=== PATIENT | male | born 1950 | race Caucasian/White ===

== ENCOUNTER 2019-05-18 17:30 | Emergency (ER) | payer MEDICARE, OTHER, SELFPAY ==
[2019-05-18 17:31] VITALS: BP 100/58; PULSE 96; RESP 16; TEMP 36.1; O2SAT 95; BMI 27.8
--- NOTE | 2019-05-18 18:14 | ED.VIS.FALL ---
History of Present Illness Chief Complaint: Fall Informant: Patient Occurred: Days - 4 Fall from Height (ft): 2 Location: left chest/ribs Quality of Pain: Aching Current Severity: Moderate Maximum Severity: Moderate Worsened by: Movement, deep breathing Relieved by: Remaining still Associated Symptoms: Negative for: Parasthesias, Weakness, Loss of function, Inability to ambulate, Loss of consciousness, Amnesia Narrative: Patient states he was pushing something off of a truck bed, when he fell off of the truck with it, falling a couple feet hitting a picnic table before he hit the ground. He was injured in the left anterior chest wall. Denies any left arm or shoulder injury, or pains elsewhere. He has had pain with taking a deep breath but no dyspnea. Today he felt a pop and the pain got worse. Still no dyspnea or any other pain or injuries. - Past Medical History (1) Hypertension Status: Chronic (2) Peripheral vascular disease Status: Chronic (3) Diabetes Status: Chronic Past Medical History - Allergies and Home Meds Allergies/Adverse Reactions: Allergies codeine Adverse Reaction (Verified 05/18/19 17:30) Upset Stomach Primary Care Physician: Kit Saha MD [Primary Care Provider] - Surgical History: - - Right lung Lives: Spouse/ Significant Other Smoking Status: Former smoker Review of Systems General: Denies: Chills, Fever, Sweats Eyes: Denies: Visual changes - bilaterally, Diplopia ENT: Denies: Rhinorrhea, Sore throat Cardiovascular: Reports: Chest pain. Denies: Palpitations Respiratory: Denies: Dyspnea, Cough, Dyspnea on exertion Gastrointestinal: Denies: Abdominal pain, Nausea, Vomiting, Diarrhea, Melena, Hematochezia Genitourinary: Denies: Dysuria, Hematuria, Frequency Musculoskeletal: Denies: Neck pain, Back pain, Swelling, Extremity Pain Skin: Denies: Rash, Wounds Neurological: Denies: Headache, Weakness, Numbness Physical Exam Vital Signs/Narrative: Vital Signs Temp Pulse Resp BP Pulse Ox 05/18/19 17:31 97 F L 96 16 100/58 L 95 Inital Vital Signs reviewed: Yes General: Well nourished, Well developed Head: Normocephalic, Atraumatic Eyes: Perrl, EOMI ENT: TM's clear, No hemotympanum or drainage, No trauma Neck: Nontender, Full ROM Cardiovascular: Regular rate, Regular rhythm, No murmurs Respiratory: No distress, CTA bilaterally - With equal breath sounds bilaterally and trachea midline, - - Point tender left anterior chest wall, no crepitance or subcutaneous emphysema palpable. No flail chest. Clavicle nontender, acromioclavicular joint nontender. Sternum nontender. No obvious signs of trauma. Mild tenderness around the axilla, nontender throughout the back. Abdomen: Soft, Nontender, Nondistended, Normal bowel sounds Back: Nontender Skin: Normal color, No rash, No Trauma Neurological: Alert, Oriented x3, Cranial nerves II-XII grossly intact, Normal Strength, Normal Sensation, Normal Gait Psychological: Normal affect, Normal Mood Diagnostic/Tx/Re-eval Clinical Impression(s) from Imaging Studies Ribs w/Chest X-Ray 05/18/19 18:31 IMPRESSION: RIBS: Normal x-ray examination of the ribs. CHEST: Fibrosis versus trace effusion in the right costophrenic angle. Otherwise negative study. Electronically Signed: Dixie Wu MD at 19:31 EDT Tel , Service support , - Medical Decision Making X-rays of the left ribs and PA chest are unremarkable, showing no fracture or pneumothorax. Patient declines analgesics and wants to go home, supportive care advised and appropriate discharge instructions given. ED Disposition - Plan for ED Patient: Disposition: Home or Assisted Living Diagnosis: Contusion of left chest wall Instructions: RIB: CONTUSION vs MINOR FRACTURE Referrals: Kit Saha MD [Primary Care Provider] - As Needed
--- NOTE | 2019-05-18 18:31 | RAD_ITS ---
STUDY: X-RAY - UNILATERAL RIBS ( LEFT ) WITH CHEST REASON FOR EXAM: Male, 68 years old. Pain mid left ribs anteriorly. 3 days status post fall. TECHNIQUE - RIBS: 5 view(s) of the ribs. TECHNIQUE - CHEST: 1 COMPARISON: None. FINDINGS - RIBS: Normal visualized ribs without a demonstrated fracture. FINDINGS - CHEST: Trace blunting of the right costophrenic angle consistent with scarring or trace pleural effusion. No left pleural effusion. No pulmonary consolidation or pneumothorax. Lung pike are clear. Heart size is normal. Hilar and mediastinal shadows are unremarkable. There is mild atherosclerotic calcification of the aortic arch. RAD/Ribs Uni Min 3V w/PA Chest IMPRESSION: RIBS: Normal x-ray examination of the ribs. CHEST: Fibrosis versus trace effusion in the right costophrenic angle. Otherwise negative study. Electronically Signed: Dixie Wu MD at 19:31 EDT Tel , Service support ,
[2019-05-18 19:52] VITALS: BP 106/68; PULSE 85; RESP 17; O2SAT 97
== END 2019-05-18 19:53 | disposition home or self-care (01) ==
PROVIDERS: Emergency Provider Emergency Medicine; Family Provider Family Medicine; PCP Family Medicine
DX: S20.212A Contusion of left front wall of thorax, initial encounter (principal); W17.89XA Other fall from one level to another, initial encounter; E11.51 Type 2 diabetes mellitus with diabetic peripheral angiopathy without gangrene; I10 Essential (primary) hypertension; Z87.891 Personal history of nicotine dependence; Z88.5 Allergy status to narcotic agent
CPT/HCPCS: 71101; 99282

== ENCOUNTER 2023-07-03 22:24 | Emergency (ER) | payer MEDICARE, OTHER, SELFPAY ==
[2023-07-03 22:30] VITALS: BP 143/82; PULSE 94; RESP 18; TEMP 36.6; O2SAT 96; BMI 27.1
[2023-07-03] MEDS: 0.9% Normal Saline (1000mL) 1,000 ML 999 ML IV ×2 (23:00→23:12)
[2023-07-03 23:19] LABS: Absolute Lymphocyte Count 0.52 X10^3/uL (0.83-4.51); Absolute Neutrophil Count 4.3 X10^3/uL (2.0-7.7); Basophil# 0.12 X10^3/uL; Basophil% 2.2 % (0-1); Differential Indicated SCAN CRITERIA MET; Eosinophil# 0.06 X10^3/uL; Eosinophils% 1.1 % (0-5); Hematocrit 42.2 % (40-54); Hemoglobin 13.6 g/dL (13.0-16.5); Lymphocyte # 0.52 X10^3/ul (0.83-4.51); Lymphocyte % 9.6 % (19-41); Mean Corp Hgb Conc 32.2 g/dL (32-36); Mean Corpuscular Hgb 29.6 pg (27.0-32.0); Mean Corpuscular Volume 91.7 fL (80-94); Mean Platelet Vol. 12.4 fl (6.2-12.0); Monocyte# 0.24 X10^3/uL; Monocyte% 4.4 % (0-10); NRBC Flagged by Analyzer 0 % (0-5); Neutrophil # 4.33 X10^3/uL (2.7-7.7); Neutrophil % 79.8 % (47-70); POSITIVE DIFFERENTIAL YES; POSITIVE MORPHOLOGY YES; Platelet Count 145 K/mm3 (150-450); RBC Distribution Width CV 12.6 % (11.6-14.6); White Blood Count 5.4 K/mm3 (4.4-11.0)
--- NOTE | 2023-07-03 23:47 | EX.ED.DYSGE1 ---
HPI History of Present Illness Chief Complaint: Nausea/Vomiting Informant: patient, spouse/S.O. and family Narrative Narrative: Patient is a 73-year-old male with past medical history of diabetes hypertension peripheral vascular disease and prostate cancer. He recently started chemotherapy and underwent treatment on Sunday and Sunday. Following his third treatment he had decreased oral intake. Family states that his mental status seemed to be more depressed today as well and secondary to this EMS was called. Family states patient is extremely hard of hearing which makes evaluating his mental status difficult but they do report that since receiving IV fluids they feel like his symptoms have improved. They do of concern for dehydration based on his recent chemotherapy use and poor oral intake and therefore he was brought in for evaluation [facility] Medical History Prostate cancer Home Medications glipizide 5 mg tablet 5 mg PO BID 05/18/19 [History Last Taken Unknown] dulaglutide 3 mg/0.5 mL subcutaneous pen injector (Trulicity) 3 mg subcut QWEEK 07/03/23 [History Last Taken Unknown] loratadine 10 mg tablet (Claritin) 10 mg PO DAILY 07/03/23 [History Last Taken Unknown] metoprolol succinate 25 mg tablet,extended release 24 hr 25 mg PO DAILY 07/03/23 [History Last Taken Unknown] rosuvastatin 40 mg tablet 40 mg PO QHS 07/03/23 [History Last Taken Unknown] Allergy/AdvReac Type Severity Reaction Status Date / Time codeine AdvReac Upset Verified 05/18/19 17:30 Stomach metformin Allergy Mild other Uncoded 07/03/23 22:30 Social History Smoking Status: Current some day smoker tobacco type: e-cigarettes ROS ROS ED Constitutional Constitutional ED: Denies chills or fever(s) ENT ENT ED: Denies sore throat Cardiovascular Cardiovascular: Denies chest pain Respiratory/Chest Respiratory/Chest: Denies cough or dyspnea Gastrointestinal Gastrointestinal: Reports nausea; Denies abdominal pain, diarrhea or vomiting Genitourinary Genitourinary ED: Denies dysuria Musculoskeletal Musculoskeletal: Denies myalgias Integumentary Denies rash Neurologic Neurologic: Reports paresthesias and other Details: Patient states paresthesias are chronic in nature as he has a history of neuropathy to his lower legs ; Denies headache(s) Hematologic/Lymphatic Hematologic/Lymphatic: Denies easy bleeding or easy bruising EXAM Physical Exam Const Vital Signs: 07/03/23 22:30 07/04/23 00:04 07/04/23 02:02 Temperature 97.8 F Temperature Source Temporal Pulse Rate 94 102 H 90 Respiratory Rate 18 16 18 Blood Pressure 143/82 H 143/98 H 160/83 H Blood Pressure Mean 102 113 108 Pulse Ox 96 96 94 Oxygen Delivery Method Room Air Room Air Positive well nourished and well developed General Appearance ED: well developed; Negative for pallor HEENT Reports dry mucous membranes HEENT Narrative: Mucous membranes are dry and tacky without secondary changes to suggest infection or changes to suggest airway edema or compromise Mouth ED: Yes dry mucous membranes Mouth: dry mucous membranes Eyes PERRL and EOMs intact bilaterally General Eye ED: Negative for scleral icterus Neck supple Neck Narrative: No nuchal rigidity or meningeal signs present Resp normal respiratory effort and clear to auscultation bilaterally Cardio regular rate and regular rhythm Rate: other Other Details: Radial and carotid pulses are equal and symmetric GI non-tender and non-distended GI Narrative: Abdomen is soft nontender nondistended with hyperactive bowel sounds. No voluntary guarding or rigidity. No pulsatile mass or fluid wave. No increased tympany noted Auscultation: hyperactive bowel sounds Palpation: soft Extremity normal to inspection Extremity Narrative: No asymmetric edema no pitting edema negative Homans' sign bilaterally Neuro oriented x3 and CN's II-XII intact bilaterally Neuro Narrative: Patient has difficulty with hearing but once he does hear and understand you he responds appropriately and there is no focal neurologic deficit Sensorium / Orientation: alert Psych mental status grossly normal Skin no rashes or lesions noted Skin Narrative: Skin turgor is increased General Skin Exam: Negative for jaundice or pallor MDM MDM MDM Narrative Medical decision making narrative: Patient presented to the ER with stable vitals and according to family improvement back to his baseline mental status with IV hydration. On exam he has no focal deficit and therefore I felt no need for a stroke alert or stroke work-up. With his history of prostate cancer and recent chemotherapy there is concern for secondary infection such as UTI or neutropenia or thrombocytopenia. As physical exam shows dehydration there is concern for acute kidney injury or severe electrolyte derangement. Basic blood work was obtained and patient has thrombocytopenia but not at a clinically significant level and his neutrophil count is actually elevated going against neutropenic fever and his kidney function electrolytes revealed no clinically significant findings. Patient was given total of 3 L of fluid and had improvement of mental status and reported feeling better. Therefore at this time as patient's been rehydrated and labs show no clinically significant findings patient is otherwise safe for discharge History & Record Review Discussion w/independent historian: Patient and Family Lab Data Attestation: I reviewed the patient's lab results. Labs: Laboratory Results - last 24 hr 07/03/23 07/03/23 00:00 23:15 WBC 5.4 RBC 4.60 Hgb 13.6 Hct 42.2 MCV 91.7 MCH 29.6 MCHC 32.2 RDW Std Deviation 42.0 RDW Coeff of Scarlett 12.6 Plt Count 145 L MPV 12.4 H Immature Gran % (Auto) 2.900 H Neut % (Auto) 79.8 H Lymph % (Auto) 9.6 L Cass % (Auto) 4.4 Eos % (Auto) 1.1 Baso % (Auto) 2.2 H Absolute Neuts (auto) 4.3 Absolute Lymphs (auto) 0.52 L Nucleated RBC % 0 Sodium 135 L Potassium 4.4 Chloride 107 Carbon Dioxide 23.0 Anion Gap 5 BUN 20 H Creatinine 0.87 Estim Creat Clear Calc 86.74 Est GFR (MDRD) Af Amer 111 Est GFR (MDRD) Non-Af 92 BUN/Creatinine Ratio 23.1 H Glucose 149 H Calcium 8.3 L Magnesium 1.8 Total Bilirubin 1.50 H Direct Bilirubin 0.39 H AST 25 ALT 37 Alkaline Phosphatase 103 Total Protein 6.2 L Albumin 2.9 L Globulin 3.3 Urine Color Yellow Urine Clarity Clear Urine pH 5.0 Ur Specific [place] 1.025 Urine Protein 100 H Urine Glucose (UA) 100 H Urine Ketones 50 H Urine Occult Blood Negative Urine Nitrite Negative Urine Bilirubin 1 H Urine Urobilinogen 4 H Ur Leukocyte Esterase 25 H Urine RBC 0 SEEN Urine WBC 0 SEEN Ur Squamous Epith Cells 0 SEEN Urine Bacteria 0 SEEN Urine Mucus 0 SEEN Discharge Plan Triage Chief Complaint: Nausea/Vomiting Other Complaint: Confusion ED Provider: Jimmie Zambrano Dx/Rx/DC Orders Clinical Impression: Prostate cancer, Dehydration, Diabetes, Hypertension Instructions: ED Dehydration (Adult) Prescriptions: No Action glipizide 5 tablet 5 mg PO BID Rx Instructions: 2 pills am, 1 evening rosuvastatin 40 mg tablet 40 mg PO QHS metoprolol succinate 25 mg tablet extended release 24 hr 25 mg PO DAILY loratadine [Claritin] 10 mg tablet 10 mg PO DAILY Trulicity 3 mg/0.5 mL pen injector 3 mg subcut QWEEK Primary Care Provider: Kit Saha Referrals: Kit Saha MD [Primary Care Provider] - Disposition Disposition: Home, Self Care Discharge Date/Time: 07/04/23 02:19
[2023-07-03 23:49] LABS: AST(SGOT) 25 U/L (15-37); Alanine Aminotransfer ALT/SGPT 37 U/L (16-61); Albumin, Serum 2.9 g/dL (3.2-5.0); Alkaline Phosphatase 103 U/L (45-117); Anion Gap 5 (5-15); BUN 20 mg/dL (7-18); BUN/Creat Ratio 23.1 RATIO (10-20); Bilirubin, Direct 0.39 mg/dL (0.00-0.30); Calcium,Total 8.3 mg/dL (8.5-10.1); Chloride 107 mmol/L (98-107); Creatinine, Serum 0.87 mg/dL (0.70-1.30); EST Glomerular Filtration Rate 92 mL/min (>60); Est Glom Filt Rate - Afr Amer 111 mL/min (>60); Estimated Creatinine Clearance 86.74 ml/min; Globulin 3.3 g/dL (2.2-4.2); Glucose 149 mg/dL (74-106); Magnesium 1.8 mg/dL (1.6-2.6); Potassium 4.4 mmol/L (3.5-5.1); Protein, Total 6.2 g/dL (6.4-8.2); Sodium Level 135 mmol/L (136-145)
[2023-07-04] LABS: Bacteria 0 SEEN /hpf (None Seen); Mucous, Urine 0 SEEN /hpf (<or=2+); Red Blood Cells-Urine 0 SEEN /hpf (0-5); Squamous Epithelial Cells - UA 0 SEEN /hpf (0-5); White Blood Cells 0 SEEN /hpf (0-5)
[2023-07-04 00:04] VITALS: BP 143/98; PULSE 102; RESP 16; O2SAT 96
[2023-07-04 00:17] LABS: Color, Urine Yellow (Yellow); Glucose, Dipstick 100 mg/dl (Normal); Ketone-Dipstick 50 mg/dl (Negative); Leukocyte Esterase-Dipstick 25 /ul (Negative); Nitrite-Dipstick Negative (Negative); Occult Blood-Urine Negative /ul (Negative); Protein-Dipstick 100 mg/dl (Negative); Specific Gravity, Urine 1.025 (1.002-1.030); Urine Clarity Clear (Clear); Urine Urobilinogen 4 mg/dl (Normal)
[2023-07-04 00:20] LABS: Urine Bilirubin Dipstick 1 mg/dL (Negative)
[2023-07-04] MEDS: 0.9% Normal Saline (1000mL) 1,000 ML 999 ML IV (01:07)
[2023-07-04 02:02] VITALS: BP 160/83; PULSE 90; RESP 18; O2SAT 94
== END 2023-07-04 02:19 | disposition home or self-care (01) ==
PROVIDERS: Emergency Provider Emergency Medicine; PCP Family Medicine; Visit Provider Emergency Medicine
DX: C61 Malignant neoplasm of prostate (principal); D69.6 Thrombocytopenia, unspecified; E11.9 Type 2 diabetes mellitus without complications; E86.0 Dehydration; R41.0 Disorientation, unspecified; R11.2 Nausea with vomiting, unspecified; I10 Essential (primary) hypertension; Z92.21 Personal history of antineoplastic chemotherapy; F17.290 Nicotine dependence, other tobacco product, uncomplicated; Z79.899 Other long term (current) drug therapy
CPT/HCPCS: 80048; 80076; 81001; 83735; 85025; 96360; 96361; 99285; J7030; P9612; A4216